=== PATIENT | female | born 1965 | race Caucasian/White ===

== ENCOUNTER → 2016-08-15 | Outpatient (CLI) | payer BC ==
[2016-04-26 20:38] VITALS: BP 176/60
[~2016-08-15] MED LIST: HYDR-971 PO; NAPR550T PO
--- NOTE | 2016-08-17 09:08 | KCIC ---
PROCEDURE Bilateral digital screening mammogram. HISTORY 51-year-old female presents for screening mammography. TECHNIQUE Full field digital craniocaudal and mediolateral oblique views of both breasts are obtained. Computer-aided detection was applied. COMPARISON 12/25/2013 FINDINGS Breast parenchymal composition: Level A - Mostly fat. There is no suspicious mass, calcification or architectural distortion within either breast. IMPRESSION BI-RADS Category 2: Benign findings. Annual mammography is recommended. Mammography is not 100% sensitive in detecting breast cancer. Therefore, a self breast exam and a clinical breast exam are very important. A negative mammogram does not negate a clinically suspicious finding and should not result in a delay in biopsying a clinically suspicious abnormality. This patient's information has been entered into a reminder system for the patient to be notified with the results of this examination and a target date for her next mammograms. Electronically signed by: Ellie Morse (Aug 17, 2016 09:07:10)
== END | disposition home or self-care (01) ==
LOC: KCIC MAMMO 13:40
PROVIDERS: ATTEND Nurse Practitioner Women's Health
DX: Z12.31 Encounter for screening mammogram for malignant neoplasm of breast (principal)
CPT/HCPCS: G0202; 77067

== ENCOUNTER 2018-02-21 19:34 | Emergency (ER) | payer OTHER ==
[~2018-02-21] VITALS: Ht 154.9 cm; Wt 74.8 kg
[~2018-02-21 19:34] MED LIST changes: +NAPR-682 PO; -NAPR550T PO
[2018-02-21 19:50] VITALS: BP 122/76
[2018-02-21] MEDS ORDERED: NAPR-514 PO (20:25)
[2018-02-21] MEDS ORDERED: PROAIR HFA8.5 GM INH (20:25)
[2018-02-21] MEDS ORDERED: GUAI237L83 PO (20:25)
--- NOTE | 2018-02-21 20:25 | PHYS DOC ---
Past Medical History Past Medical History: Other Additional Past Medical Histor: spondylosis Past Surgical History: Hysterectomy Alcohol Use: Rarely Drug Use: None Adult General Chief Complaint Chief Complaint: COUGH HPI HPI Patient is a 52 year old female who presents to emergency room with complaints of a dry cough for the last 7 days. She denies any fever, wheezing, nausea, vomiting, diarrhea, abdominal pain, sore throat, rash or sinus pressure. Patient states she has had a little nasal congestion, runny nose, and chest tenderness with cough. She states that her chest feels sore when she takes a deep breath or coughs. Denies any change in chronic back pain. She states she is a smoker and typically smokes three fourths of a pack a day however, she has not smoked at all today. Patient requests a prescription for [id number] cough medicine as her HSA will cover if there is a prescription. Review of Systems Review of Systems Constitutional: Denies fever or chills [] HENT: Denies chest pressure or sore throat; reports nasal congestion, runny nose , and bilateral ear fullness Respiratory: Reports dry cough for the last 7 days and shortness of breath with increased activity. Cardiovascular: Denies any palpitations; reports pain with deep breath and coughing GI: Denies abdominal pain, nausea, vomiting, or diarrhea [] Musculoskeletal: Denies back pain or joint pain [] Integument: Denies rash or skin lesions [] Neurologic: Denies headache, focal weakness or sensory changes [] Allergies Allergies Allergies Coded Allergies Type Severity Reaction Last Updated Verified fluticasone Allergy Severe DYSPNEA 04/26/16 Yes gabapentin Allergy Mild CONFUSION 04/26/16 Yes tramadol Allergy Mild hives 04/26/16 Yes Physical Exam Physical Exam Constitutional: Well developed, well nourished, no acute distress, non-toxic appearance. [] HENT: Normocephalic, atraumatic, bilateral external ears normal, lateral TMs normal, cobblestone appearance of posterior pharynx, oropharynx moist, no oral exudates, nose normal. [] Eyes: Normal Neck: Normal range of motion, no tenderness, no lymphadenopathy, supple, no stridor. [] Cardiovascular:Heart rate regular rhythm, no murmur [] Lungs & Thorax: Bilateral breath sounds clear to auscultation [] Skin: Warm, dry, no erythema, no rash. [] Extremities: No tenderness, no cyanosis, Neurologic: Alert and oriented X 3, normal motor function, normal sensory function, no focal deficits noted. [] Psychologic: Affect normal, judgement normal, mood normal. [] Current Patient Data Vital Signs Vital Signs Date Time Temp Pulse Resp B/P (MAP) Pulse Ox O2 Delivery O2 Flow Rate FiO2 02/21/18 19:50 98.6 84 20 122/76 (91) 98 Room Air 98.6 EKG EKG [] Radiology/Procedures Radiology/Procedures [] Course & Med Decision Making Course & Med Decision Making Pertinent Labs and Imaging studies reviewed. (See chart for details) Upper respiratory infection, prescription for Pro Air inhaler, naproxen, and Robitussin written. Primary care doctor in 1-2 days. Patient verbalized an understanding of home care, medications, follow-up, and return to ED instructions and was in agreement with the plan of care. [] Dragon Disclaimer Dragon Disclaimer This electronic medical record was generated, in whole or in part, using a voice recognition dictation system. Departure Departure Impression: Primary Impression: Upper respiratory infection Disposition: 01 HOME, SELF-CARE Condition: STABLE Referrals: MIKE JAY APRN (PCP) Patient Instructions: Upper Respiratory Infection, Adult, [id number] Additional Instructions: Fill prescription(s) and use as directed. Cool mist humidifier in room at bedtime. Tylenol or ibuprofen prn pain/fever. Increase clear fluids. Avoid triggers such as smoke, fragrance, dust, and pollen. May take OTC cough suppressants as needed. Follow-up with your primary care doctor in 1-2 days. Return to the emergency room if her symptoms worsen. Scripts Guaifenesin/Dextromethorphan (Robitussin Cough-Chest Dm Liq) 237 Ml Liquid 20 ML PO Q4HRS W/A PRN for COUGH for 10 Days, #1 BOTTLE 0 Refills Prov: SERGIO TURCIOS APRN 02/21/18 Naproxen (NAPROXEN) 500 Mg Tablet 500 MG PO BID for 10 Days, #20 TAB 0 Refills Prov: SERGIO TURCIOS DISABILITY COORDINATOR 02/21/18 Albuterol Sulfate (PROAIR HFA INHALER) 8.5 Gm Hfa.aer.ad 1-2 PUFF INH PRN Q4-6HRS PRN for SHORTNESS OF BREATH for 10 Days, #1 INHALER 0 Refills Prov: SERGIO TURCIOS DISABILITY COORDINATOR 02/21/18 Problem Qualifiers Primary Impression: Upper respiratory infection URI type: unspecified URI Qualified Codes: J06.9 - Acute upper respiratory infection, unspecified SERGIO TURCIOS DISABILITY COORDINATOR Feb 21, 2018 20:25
== END 2018-02-21 20:30 | disposition home or self-care (01) ==
LOC: ER 19:34
DX: J06.9 Acute upper respiratory infection, unspecified (principal); Z88.6 Allergy status to analgesic agent; Z88.8 Allergy status to other drugs, medicaments and biological substances
CPT/HCPCS: 99283

== ENCOUNTER 2018-04-27 16:00 | Emergency (ER) | payer MEDICARE, OTHER ==
[~2018-04-27] VITALS: Ht 154.9 cm; Wt 80.0 kg
[~2018-04-27 16:00] MED LIST changes: +GUAI237L83 PO; +NAPR-514 PO; +PROAIR HFA8.5 GM INH
[2018-04-27] MEDS ORDERED: GABAPENTIN 300 MG CAPSULE. PO STA (16:34)
[2018-04-27] MEDS ORDERED: ASPIRIN 325 MG TABLET PO ONE (16:45)
[2018-04-27] MEDS ORDERED: CYCLOBENZAPRINE 10 MG TABLET. PO ONE (16:45)
--- NOTE | 2018-04-27 16:52 | PHYS DOC ---
Past Medical History Past Medical History: Other Additional Past Medical Histor: CHRONIC BACK PAIN Past Surgical History: Hysterectomy Alcohol Use: Occasionally Drug Use: None Adult General Chief Complaint Chief Complaint: UPPER EXTREMITY PAIN HPI HPI Patient is a 53 year old female with history of smoking who presents today complaining of 5 out of 10 left shoulder pain radiating up to the left elbow that began this morning. Patient states the pain the pain is worse on range of motion. Patient describes the pain as sharp and intermittent. Patient states certain movements relief the pain. Patient denies any trauma. denies any chest pain or shortness of breath. Patient states it feels like a pinched nerve. Denies any numbness or tingling to the left upper extremity. Review of Systems Review of Systems Constitutional: Denies fever or chills [] Eyes: Denies change in visual acuity, redness, or eye pain [] HENT: Denies nasal congestion or sore throat [] Respiratory: Denies cough or shortness of breath [] Cardiovascular: No additional information not addressed in HPI [] GI: Denies abdominal pain, nausea, vomiting, bloody stools or diarrhea [] : Denies dysuria or hematuria [] Musculoskeletal: Reports left shoulder pain radiating to the left elbow Integument: Denies rash or skin lesions [] Neurologic: Denies headache, focal weakness or sensory changes [] All other systems were reviewed and found to be within normal limits, except as documented in this note. Current Medications Current Medications Current Medications Medications (Trade) Dose Ordered Sig/Padmini Start Time Stop Time Status Last Admin Dose Admin Aspirin (Jed Aspirin) 325 mg 1X ONCE 04/27/18 16:45 04/27/18 16:46 DC 04/27/18 16:45 325 MG Cyclobenzaprine HCl (Flexeril) 10 mg 1X ONCE 04/27/18 16:45 04/27/18 16:46 DC 04/27/18 16:45 10 MG Gabapentin (Neurontin) 300 mg 1X STAT 04/27/18 16:34 04/27/18 16:38 DC Allergies Allergies Allergies Coded Allergies Type Severity Reaction Last Updated Verified fluticasone Allergy Severe DYSPNEA 04/26/16 Yes gabapentin Allergy Mild CONFUSION 04/26/16 Yes tramadol Allergy Mild hives 04/26/16 Yes Physical Exam Physical Exam Constitutional: Well developed, well nourished, no acute distress, non-toxic appearance. [] HENT: Normocephalic, atraumatic, bilateral external ears normal, oropharynx moist, no oral exudates, nose normal. [] Eyes: PERRLA, EOMI, conjunctiva normal, no discharge. [] Neck: Normal range of motion, no tenderness, supple, no stridor. [] Cardiovascular:Heart rate regular rhythm, no murmur, Lungs & Thorax: Bilateral breath sounds clear to auscultation [] Abdomen: Bowel sounds normal, soft, no tenderness, no masses, no pulsatile masses. [] Skin: Warm, dry, no erythema, no rash. [] Back: No tenderness, no CVA tenderness. [] Extremities: No tenderness, no cyanosis, no clubbing, ROM intact, no edema. Reproducible left shoulder pain on range of motion. Neurologic: Alert and oriented X 3, normal motor function, normal sensory function, no focal deficits noted. [] Psychologic: Affect normal, judgement normal, mood normal. [] Current Patient Data Vital Signs Vital Signs Date Time Temp Pulse Resp B/P (MAP) Pulse Ox O2 Delivery O2 Flow Rate FiO2 04/27/18 18:04 98.4 74 16 117/74 (88) 97 Room Air 98.4 Lab Values Laboratory Tests Test 04/27/18 17:01 04/27/18 17:30 White Blood Count 9.6 x10^3/uL (4.0-11.0) Red Blood Count 4.31 x10^6/uL (3.50-5.40) Hemoglobin 13.4 g/dL (12.0-15.5) Hematocrit 38.4 % (36.0-47.0) Mean Corpuscular Volume 89 fL (79-100) Mean Corpuscular Hemoglobin 31 pg (25-35) Mean Corpuscular Hemoglobin Concent 35 g/dL (31-37) Red Cell Distribution Width 13.5 % (11.5-14.5) Platelet Count 322 x10^3/uL (140-400) Neutrophils (%) (Auto) 63 % (31-73) Lymphocytes (%) (Auto) 28 % (24-48) Monocytes (%) (Auto) 6 % (0-9) Eosinophils (%) (Auto) 2 % (0-3) Basophils (%) (Auto) 1 % (0-3) Neutrophils # (Auto) 6.1 x10^3uL (1.8-7.7) Lymphocytes # (Auto) 2.7 x10^3/uL (1.0-4.8) Monocytes # (Auto) 0.5 x10^3/uL (0.0-1.1) Eosinophils # (Auto) 0.2 x10^3/uL (0.0-0.7) Basophils # (Auto) 0.1 x10^3/uL (0.0-0.2) Sodium Level 143 mmol/L (136-145) Potassium Level 3.9 mmol/L (3.5-5.1) Chloride Level 108 mmol/L (98-107) H Carbon Dioxide Level 29 mmol/L (21-32) Anion Gap 6 (6-14) Blood Urea Nitrogen 13 mg/dL (7-20) Creatinine 0.6 mg/dL (0.6-1.0) Estimated GFR (Cockcroft-Gault) 105.0 Glucose Level 103 mg/dL (70-99) H Calcium Level 8.8 mg/dL (8.5-10.1) Magnesium Level 2.1 mg/dL (1.8-2.4) Troponin I Quantitative < 0.017 ng/mL (0.000-0.055) GY-Pcv-V-Type Natriuretic Peptide 25 pg/mL (0-124) Thyroid Stimulating Hormone (TSH) 1.039 uIU/mL (0.358-3.74) Urine Collection Type Unknown Urine Color Yellow Urine Clarity Clear Urine pH 6.0 Urine Specific [place] >=1.030 Urine Protein Negative mg/dL (NEG-TRACE) Urine Glucose (UA) Negative mg/dL (NEG) Urine Ketones (Stick) Negative mg/dL (NEG) Urine Blood Negative (NEG) Urine Nitrite Negative (NEG) Urine Bilirubin Negative (NEG) Urine Urobilinogen Dipstick 1.0 mg/dL (0.2 mg/dL) Urine Leukocyte Esterase Negative (NEG) Urine RBC 0 /HPF (0-2) Urine WBC 0 /HPF (0-4) Urine Squamous Epithelial Cells Mod /LPF Urine Bacteria Few /HPF (0-FEW) Urine Mucus Mod /LPF Urine Opiates Screen Neg (NEG) Urine Methadone Screen Neg (NEG) Urine Barbiturates Neg (NEG) Urine Phencyclidine Screen Neg (NEG) Urine Amphetamine/Methamphetamine Pos (NEG) Urine Benzodiazepines Screen Neg (NEG) Urine Cocaine Screen Neg (NEG) Urine Cannabinoids Screen Neg (NEG) Urine Ethyl Alcohol Neg (NEG) Laboratory Tests 04/27/18 17:01 Laboratory Tests 04/27/18 17:01 EKG EKG 17:[address] Ingram sinus rhythm HR 70 no STEMI[] Radiology/Procedures Radiology/Procedures [] Course & Med Decision Making Course & Med Decision Making Pertinent Labs and Imaging studies reviewed. (See chart for details) This is a 53-year-old female patient presenting to the ED today with left shoulder pain radiating to the left elbow. No known injury. No chest pain or shortness of breath. Pain mostly on range of motion. Patient's cardiac workup including troponin is negative, chest x-ray left shoulder x-rays are both negative, vitals are normal. Pain is musculoskeletal. Discharged with cyclobenzaprine. Follow-up with PCP in the course of next week. Heart score 1. Staff Physician Addendum: I was working in the ER during the course of this patient's visit. I was available for consultation as needed, but I was not directly involved in the care of this patient. Dragon Disclaimer Dragon Disclaimer This electronic medical record was generated, in whole or in part, using a voice recognition dictation system. Departure Departure Impression: Primary Impression: Left shoulder pain Disposition: 01 HOME, SELF-CARE Condition: STABLE Referrals: MIKE JAY APRN (PCP) Follow-up next week Patient Instructions: Shoulder Pain, [id number] Additional Instructions: You were evaluated for shoulder pain, this pain appears musculoskeletal. Try to ice and elevate the extremity. Take the prescribed medications as ordered. Follow-up with your doctor next week if symptoms continue. Scripts Cyclobenzaprine Hcl (CYCLOBENZAPRINE HCL) 10 Mg Tablet 1 TAB PO TID, #30 TAB Prov: CHASITY BILL APRN 04/27/18 Problem Qualifiers Primary Impression: Left shoulder pain Chronicity: acute Qualified Codes: M25.512 - Pain in left shoulder CHASITY BILL APRN Apr 27, 2018 16:52 AMANDA INGRAM MD Apr 28, 2018 18:38
[2018-04-27 17:18] LABS: BASO # 0.1 x10^3/uL (0.0-0.2); BASO % 1 % (0-3); EOS # 0.2 x10^3/uL (0.0-0.7); EOS % 2 % (0-3); HEMATOCRIT 38.4 % (36.0-47.0); HEMOGLOBIN 13.4 g/dL (12.0-15.5); LYMPH # 2.7 x10^3/uL (1.0-4.8); LYMPH % 28 % (24-48); MEAN CORPUSCULAR HEMOGLOBIN 31 pg (25-35); MEAN CORPUSCULAR HGB CONC 35 g/dL (31-37); MEAN CORPUSCULAR VOLUME 89 fL (79-100); MONO # 0.5 x10^3/uL (0.0-1.1); MONO % 6 % (0-9); NEUT # 6.1 x10^3uL (1.8-7.7); NEUT % 63 % (31-73); PLATELET COUNT 322 x10^3/uL (140-400); RED BLOOD COUNT 4.31 x10^6/uL (3.50-5.40); RED CELL DISTRIBUTION WIDTH 13.5 % (11.5-14.5); WHITE BLOOD COUNT 9.6 x10^3/uL (4.0-11.0)
[2018-04-27 17:27] LABS: CALCIUM 8.8 mg/dL (8.5-10.1); CREATININE 0.6 mg/dL (0.6-1.0); MAGNESIUM 2.1 mg/dL (1.8-2.4); POTASSIUM 3.9 mmol/L (3.5-5.1)
--- NOTE | 2018-04-27 17:31 | RAD ---
PORTABLE CHEST 1V, SHOULDER 2+V LEFT History: Left upper chest pain, no trauma or injury. Pain radiates to the arm.. Comparison: None are available Single view portable chest Cardiac silhouette not enlarged. No focal airspace consolidation. No pneumothorax. No pleural effusion. 3 view left shoulder No evidence of acute fracture. No bone destruction. No dislocation. IMPRESSION: No acute radiographic findings. Electronically signed by: Pavel Amato MD (04/27/2018 5:28 PM) [facility]
--- NOTE | 2018-04-27 17:31 | RAD ---
PORTABLE CHEST 1V, SHOULDER 2+V LEFT History: Left upper chest pain, no trauma or injury. Pain radiates to the arm.. Comparison: None are available Single view portable chest Cardiac silhouette not enlarged. No focal airspace consolidation. No pneumothorax. No pleural effusion. 3 view left shoulder No evidence of acute fracture. No bone destruction. No dislocation. IMPRESSION: No acute radiographic findings. Electronically signed by: Pavel Amato MD (04/27/2018 5:28 PM) [facility]
[2018-04-27 17:41] LABS: BILIRUBIN,URINE NEGATIVE (NEG); CLARITY,URINE CLEAR; COLOR,URINE YELLOW; NITRITE,URINE NEGATIVE (NEG); PROTEIN,URINE NEGATIVE (NEG-TRACE)
[2018-04-27 17:47] LABS: BARBITURATES NEG (NEG); BENZODIAZEPINES NEG (NEG); CANNABINOIDS NEG (NEG); COCAINE NEG (NEG); METHADONE NEG (NEG); OPIATES NEG (NEG); PHENCYCLIDINE NEG (NEG)
[2018-04-27] MEDS ORDERED: CYCL10TA2 PO (17:47)
[2018-04-27 17:48] LABS: AMPHETAMINE/METHAMPHETAMINE POS (NEG)
[2018-04-27 17:57] LABS: BACTERIA,URINE FEW /HPF (0-FEW); RBC,URINE 0 /HPF (0-2); WBC,URINE 0 /HPF (0-4)
[2018-04-27 17:58] LABS: SQUAMOUS EPITHELIAL CELL,UR MOD /LPF
[2018-04-27 18:04] VITALS: BP 117/74
--- NOTE | 2018-04-27 18:54 | EKG ---
[facility] [address] [place] [address] Test Date: 2018-04-27 Test Time: 17:36:49 Pat Name: NII LEONE Department: Room: Gender: Female Permaculture Designer: : 1965 Requested By: CHASITY BILL Order Number: [id number] Reading MD: Winston Nieves MD Measurements Intervals [place] Rate: 70 P: 41 OK: 196 QRS: 36 QRSD: 86 T: 26 QT: 374 QTc: 407 Interpretive Statements SINUS RHYTHM Electronically Signed On 04-30-2018 14:07:40 ORTHOPEDIC PHYSICIAN ASSISTANT by Winston Nieves MD
== END 2018-04-27 18:15 | disposition home or self-care (01) ==
LOC: ER 16:00
DX: M25.512 Pain in left shoulder (principal); M25.522 Pain in left elbow; G89.29 Other chronic pain; Z88.6 Allergy status to analgesic agent; Z88.8 Allergy status to other drugs, medicaments and biological substances
CPT/HCPCS: 36415; 71045; 73030; 80048; 80307; 81001; 83735; 83880; 84443; 84484; 85025; 93005; 99285-25; G0479

== ENCOUNTER 2020-12-29 12:53 | Emergency (ER) | payer MEDICARE ==
[~2020-12-29] VITALS: Ht 154.9 cm; Wt 84.0 kg
[~2020-12-29 12:53] MED LIST changes: +ALBU2.5V8 INH; +CYCL10TA2 PO; +HYDR-3164 PO; -HYDR-971 PO; -PROAIR HFA8.5 GM INH
[2020-12-29] MEDS ORDERED: fentaNYL PF VIAL 100 MCG/2 ML VIAL IVP ONE (13:30)
[2020-12-29] MEDS ORDERED: ONDANSETRON PF 4 MG/2 ML VIAL. IVP ONE (13:30)
[2020-12-29] MEDS ORDERED: IV NORMAL SALINE 1000ML BAG 1,000 ML IV SCH (13:30)
--- NOTE | 2020-12-29 13:37 | PHYS DOC ---
Past Medical History Past Medical History: Other Additional Past Medical Histor: CHRONIC BACK PAIN (CHAI WAHLDoris Borja FRONT OFFICE MEDICAL ASSISTANT) Past Surgical History: Hysterectomy (SHERON WAHL Huong FRONT OFFICE MEDICAL ASSISTANT) Smoking Status: Current Every Day Smoker Additional Information: 0.75 PPD Alcohol Use: None Drug Use: None (SHERON WAHL FRONT OFFICE MEDICAL ASSISTANT) General Adult EDM: Chief Complaint: FLANK PAIN HPI: HPI: Patient is a 55 year old female who presents with right flank pain that is a dull/sharp type pain that she states now has started to move around into the bladder. States she is feeling a lot of pressure in her bladder. She states she is having nausea vomiting. Her symptoms started at 1115 this morning. At 1130 she took a hydrocodone. She rates her pain a 4 out of 10 at this time. Patient denies fever, diarrhea, constipation, urinary symptoms, blood in her urine, chest pain, shortness of breath, dizziness, headache. Patient states that she has a history of a kidney stone, hysterectomy, smoking, chronic back pain. (CHAI WAHLDoris Borja FRONT OFFICE MEDICAL ASSISTANT) Review of Systems: Review of Systems: Constitutional: Denies fever or chills. [] Eyes: Denies change in visual acuity. [] HENT: Denies nasal congestion or sore throat. [] Respiratory: Denies cough or shortness of breath. [] Cardiovascular: Denies chest pain or edema. [] GI: + Low mid abdominal pain, +nausea, +vomiting, bloody stools or diarrhea. [] : Denies dysuria. [] Musculoskeletal: + Right flank back pain or denies joint pain. [] Integument: Denies rash. [] Neurologic: Denies headache, focal weakness or sensory changes. [] Endocrine: Denies polyuria or polydipsia. [] Lymphatic: Denies swollen glands. [] Psychiatric: Denies depression or anxiety. [] (VICENTESHERON FRONT OFFICE MEDICAL ASSISTANT) Heart Score: C/O Chest Pain: No HEART Score for Chest Pain: HEART Score for Chest Pain Response (Comments) Value History Slighlty/Non-Suspicious 0 ECG Normal 0 Age >45 - < 65 1 Risk Factors 1 or 2 Risk Factors 1 Troponin < Normal Limit 0 Total 2 Risk Factors: Risk Factors: DM, Current or recent (<one month) smoker, HTN, HLP, family history of CAD, obesity. Risk Scores: Score 0 - 3: 2.5% MACE over next 6 weeks - Discharge Home Score 4 - 6: 20.3% MACE over next 6 weeks - Admit for Clinical Observation Score 7 - 10: 72.7% MACE over next 6 weeks - Early Invasive Strategies (SHERON WAHL APRN) Current Medications: Current Medications Medications (Trade) Dose Ordered Sig/Padmini Start Time Stop Time Status Last Admin Dose Admin Fentanyl Citrate (Fentanyl 2ml Vial) 50 mcg 1X ONCE 12/29/20 13:30 12/29/20 13:31 DC Ondansetron HCl (Zofran) 4 mg 1X ONCE 12/29/20 13:30 12/29/20 13:31 DC Sodium Chloride 1,000 ml @ 1,000 mls/hr Q1H 12/29/20 13:30 12/29/20 14:29 (SHERON WAHL APRN) Allergies: Allergies: Allergies Coded Allergies Type Severity Reaction Last Updated Verified fluticasone Allergy Severe DYSPNEA 04/26/16 Yes gabapentin Allergy Mild CONFUSION 04/26/16 Yes tramadol Allergy Mild hives 04/26/16 Yes (SHERON WAHL APRN) Physical Exam: PE: Constitutional: Well developed, well nourished, no acute distress, non-toxic appearance. [] HENT: Normocephalic, atraumatic, bilateral external ears normal, oropharynx moist, no oral exudates, nose normal. [] Eyes: PERRLA, EOMI, conjunctiva normal, no discharge. [] Neck: Normal range of motion, no tenderness, supple, no stridor. [] Cardiovascular:Heart rate regular rhythm, no murmur [] Lungs & Thorax: Bilateral breath sounds clear to auscultation [] Abdomen: Bowel sounds normal, soft, bladder tenderness, no masses, no pulsatile masses. [] Skin: Warm, dry, no erythema, no rash. [] Back: No tenderness, no CVA tenderness. [] Extremities: No tenderness, no cyanosis, no clubbing, ROM intact, no edema. [] Neurologic: Alert and oriented X 3, normal motor function, normal sensory function, no focal deficits noted. [] Psychologic: Affect normal, judgement normal, mood normal. [] (SHERON WAHL APRN) Current Patient Data: Vital Signs: Vital Signs Date Time Temp Pulse Resp B/P (MAP) Pulse Ox O2 Delivery O2 Flow Rate FiO2 12/29/20 13:07 97.7 51 19 191/87 (88) 100 Room Air 97.7 (SHERON WAHL APRN) EKG: EK and read by Dr. Mac sinus rhythm and no STEMI [] (SHERON WAHL APRN) Radiology/Procedures: Radiology/Procedures: [] Impression: [facility] [address] [place] [address] IMAGING REPORT Signed PATIENT: NII LEONE JACCOUNT: [id number] : 1965 LOCATION: ER AGE: 55 SEX: F EXAM STATUS: REG ER ORD. PHYSICIAN: SHERON WAHL APRN REASON: RIGHT FLANK PAIN, HX KIDNEY STONE PROCEDURE: CT ABDOMEN PELVIS WO CONTRAST INDICATION: Reason: RIGHT FLANK PAIN, HX KIDNEY STONE / Spl. Instructions: / Hi story: . COMPARISON: None. TECHNIQUE: Axial CT images obtained through the abdomen and pelvis without contrast. One or more of the following individualized dose reduction techniques were utilized for this examination: 1. Automated exposure control; 2. Adjustment of the mA and/or kV according to patient size; 3. Use of iterative reconstruction technique. FINDINGS: Scattered calcific atherosclerosis without abdominal aortic aneurysm. Fat-containing left inguinal hernia. No intrahepatic bile duct dilation. Gallstones. No peripancreatic fluid collection. Spleen unremarkable. Urinary bladder is decompressed. Lobulated appearance of the left kidney. Mild right-sided hydronephrosis with 3 mm right proximal ureter stone. No periappendiceal inflammatory changes. No dilated loops of bowel to suggest obstruction. Degenerative changes the spine with multilevel central canal and neural foraminal stenosis. Mild scoliotic curvature. Grade 1 anterolisthesis of L5 on S1. Pars defects L5. IMPRESSION: * Right-sided hydronephrosis with proximal ureter stone. * Gallstones. Electronically signed by: Doreen Valdez MD (12/29/2020 2:00 PM) [id number] DICTATED and SIGNED BY: DOREEN VALDEZ MD DATE: 12/29/20 [id number] (SHERON WAHL APRN) Course & Med Decision Making: Course & Med Decision Making Pertinent Labs and Imaging studies reviewed. (See chart for details) See HPI. Alert and oriented x4. Ambulatory with a steady gait. No CVA tenderness. Abdomen is soft but tender to palpation to bladder. Speaks in full clear sentences. Lungs are clear to auscultation all lobes. Skin pink warm and dry. CT shows a kidney stone. Patient is given 2 L normal saline. She is given Flomax. [] (SHERON WAHL APRN) Course & Med Decision Making I oversaw on the above date of service of this patient. This patient was evaluated, examined, treated, and dispositioned from the emergency department by the mid-level practitioner. I was requested to prescribe narcotic pain medication for this individual on FRONT OFFICE SPECIALIST's behalf, given presenting HPI and physical exam findings I feel this is appropriate.. I reviewed note and agree to findings, plan of care, and disposition as stated. Electronically signed, Dona Mac DO (DONA MAC DO) Alex Disclaimer: Alex Disclaimer: This electronic medical record was generated, in whole or in part, using a voice recognition dictation system. (SHERON WAHL APRN) Departure Departure Impression: Primary Impression: Kidney stone on right side Disposition: HOME / SELF CARE / HOMELESS Condition: STABLE Referrals: MIKE JAY APRN (PCP) Patient Instructions: Kidney Stones Additional Instructions: Follow-up with a dairy equipment specialist of your choosing. We do not have a dairy equipment specialist here at this ED. Drink plenty of fluids. Try to take the medication with food and as prescribed. Scripts Ondansetron (ONDANSETRON ODT) 4 Mg Tab.rapdis 1 TAB PO PRN Q6-8HRS, #16 TAB Prov: SHERON WAHL APRN 12/29/20 Hydrocodone Bit/Acetaminophen (HYDROCODONE-APAP 5-325 ) 1 Tab Tablet 1 TAB PO PRN Q6HRS PRN for PAIN, #10 TAB 0 Refills Prov: DONA MAC DO 12/29/20 Tamsulosin Hcl (FLOMAX) 0.4 Mg Cap.er.24h 1 CAP PO DAILY, #30 CAP Prov: SHERON WAHL APRN 12/29/20 Cephalexin (CEPHALEXIN) 500 Mg Capsule 1 CAP PO TID, #21 CAP Prov: SHERON WAHL APRN 12/29/20 SHERON WAHL APRN Dec 29, 2020 13:37 DONA MAC DO Dec 29, 2020 15:11
[2020-12-29 14:00] LABS: BASO # 0.1 x10^3/uL (0.0-0.2); BASO % 1 % (0-3); EOS # 0.1 x10^3/uL (0.0-0.7); EOS % 0 % (0-3); HEMATOCRIT 43.4 % (36.0-47.0); HEMOGLOBIN 14.5 g/dL (12.0-15.5); LYMPH # 1.4 x10^3/uL (1.0-4.8); LYMPH % 9 % (24-48); MEAN CORPUSCULAR HEMOGLOBIN 29 pg (25-35); MEAN CORPUSCULAR HGB CONC 33 g/dL (31-37); MEAN CORPUSCULAR VOLUME 88 fL (79-100); MONO # 0.5 x10^3/uL (0.0-1.1); MONO % 3 % (0-9); NEUT # 14.4 x10^3/uL (1.8-7.7); NEUT % 88 % (31-73); PLATELET COUNT 341 x10^3/uL (140-400); RED BLOOD COUNT 4.92 x10^6/uL (3.50-5.40); RED CELL DISTRIBUTION WIDTH 13.9 % (11.5-14.5); WHITE BLOOD COUNT 16.5 x10^3/uL (4.0-11.0)
--- NOTE | 2020-12-29 14:02 | RAD ---
INDICATION: Reason: RIGHT FLANK PAIN, HX KIDNEY STONE / Spl. Instructions: / History: . COMPARISON: None. TECHNIQUE: Axial CT images obtained through the abdomen and pelvis without contrast. One or more of the following individualized dose reduction techniques were utilized for this examinat ion: 1. Automated exposure control; 2. Adjustment of the mA and/or kV according to patient size; 3 . Use of iterative reconstruction technique. FINDINGS: Scattered calcific atherosclerosis without abdominal aortic aneurysm. Fat-containing left inguinal hernia. No intrahepatic bile duct dilation. Gallstones. No peripancreatic fluid collection. Spleen unremarkable. Urinary bladder is decompressed. Lobulated appearance of the left kidney. Mild right-sided hydronephrosis with 3 mm right proximal ureter stone. No periappendiceal inflammatory changes. No dilated loops of bowel to suggest obstruction. Degenerative changes the spine with multilevel central canal and neural foraminal stenosis. Mild scoliotic curvature. Grade 1 anterolisthesis of L5 on S1. Pars defects L5. IMPRESSION: * Right-sided hydronephrosis with proximal ureter stone. * Gallstones. Electronically signed by: Simon Garcia MD (12/29/2020 2:00 PM) [id number]
[2020-12-29 14:12] LABS: CALCIUM 8.6 mg/dL (8.5-10.1); CREATININE 0.6 mg/dL (0.6-1.0); GFR 104.2; POTASSIUM 3.9 mmol/L (3.5-5.1)
[2020-12-29 14:15] LABS: BILIRUBIN,URINE SMALL (NEG); CLARITY,URINE CLOUDY; COLOR,URINE AMBER; NITRITE,URINE NEGATIVE (NEG); PH,URINE 5.5 (<5.0-8.0); PROTEIN,URINE NEGATIVE (NEG-TRACE)
[2020-12-29 14:18] LABS: ALBUMIN 3.5 g/dL (3.4-5.0); ALBUMIN/GLOBULIN RATIO 1.1 (1.0-1.7); TOTAL BILIRUBIN 0.2 mg/dL (0.2-1.0); TOTAL PROTEIN 6.6 g/dL (6.4-8.2)
--- NOTE | 2020-12-29 14:21 | EKG ---
[facility] [address] [place] [address] Test Date: 2020-12-29 Test Time: 13:41:38 Pat Name: NII LEONE Department: Room: Gender: F Portfolio Assistant: : [id number] Requested By: SHERON WAHL Order Number: [id number] Reading MD: Conrado Zamora Measurements Intervals [place] Rate: 52 P: 39 DC: 170 QRS: 31 QRSD: 88 T: 37 QT: 438 QTc: 409 Interpretive Statements SINUS RHYTHM INCOMPLETE RIGHT BUNDLE BRANCH BLOCK Electronically Signed On 12-30-2020 11:48:46 CDT by Conrado Zamora
[2020-12-29] MEDS ORDERED: TAMSULOSIN 0.4 MG CAP.ER.24H. PO ONE (14:30)
[2020-12-29 14:32] LABS: BACTERIA,URINE 0 /HPF (0-FEW); RBC,URINE TNTC /HPF (0-2); WBC,URINE 0 /HPF (0-4)
[2020-12-29 14:41] LABS: % BANDS 1 % (0-9); % BASOS 1 % (0-3); % EOS 1 % (0-5); % LYMPHS 5 % (24-48); % MONOS 3 % (0-10); % SEGS 89 % (35-66); PLT ESTIMATE ADEQUATE (ADEQUATE)
[2020-12-29 14:42] LABS: TOXIC GRANULATION SLIGHT
[2020-12-29] MEDS ORDERED: IV NORMAL SALINE 1000ML BAG 1,000 ML IV ONE (14:45)
[2020-12-29] MEDS ORDERED: CEPH500C PO (14:48)
[2020-12-29] MEDS ORDERED: TAMS0.4C97 PO (14:49)
[2020-12-29] MEDS ORDERED: HYDR-2761 PO ×2 (14:50→15:10)
[2020-12-29] MEDS ORDERED: ONDA4TAB12 PO (15:12)
[2020-12-29 16:15] VITALS: BP 161/71
== END 2020-12-29 16:31 | disposition home or self-care (01) ==
LOC: ER 12:53
DX: N13.2 Hydronephrosis with renal and ureteral calculous obstruction (principal); R11.2 Nausea with vomiting, unspecified; G89.29 Other chronic pain; F17.200 Nicotine dependence, unspecified, uncomplicated; Z90.710 Acquired absence of both cervix and uterus; Z88.6 Allergy status to analgesic agent; Z88.8 Allergy status to other drugs, medicaments and biological substances
CPT/HCPCS: 36415; 74176; 80053; 81001; 84484; 85007; 85025; 93005; 96361; 96374; 96375; 99285; J2405; J3010; J7030